=== PATIENT | female | born 1970 | race Caucasian/White ===

== ENCOUNTER 2017-06-22 11:54 | Emergency (ER) | payer SELFPAY ==
[~2017-06-22] VITALS: Ht 162.6 cm; Wt 74.8 kg
[2017-06-22 12:07] VITALS: BP 147/84
[2017-06-22] MEDS ORDERED: ALPRAZolam 0.5 MG TAB PO ONE (14:45)
== END 2017-06-22 15:18 | disposition left against medical advice (07) ==
LOC: EDBD 11:54 → ER 11:54
DX: F41.1 Generalized anxiety disorder (principal); Z53.29 Procedure and treatment not carried out because of patient's decision for other reasons
CPT/HCPCS: 71046